=== PATIENT | male | born 2000 | race Caucasian/White ===

== ENCOUNTER 2023-03-19 23:40 | Emergency (ER) | payer MEDICAID, SELFPAY ==
[2023-03-19 23:41] VITALS: BP 137/76; PULSE 60; RESP 18; TEMP 36.4; O2SAT 96; BMI 23.7
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
[2023-03-20 01:51] VITALS: BP 128/80; PULSE 78; RESP 16; TEMP 36.7
== END 2023-03-20 01:52 | disposition home or self-care (01) ==
PROVIDERS: Emergency Provider Emergency Medicine; Visit Provider Emergency Medicine
DX: S60.222A Contusion of left hand, initial encounter (principal); V43.52XA Car driver injured in collision with other type car in traffic accident, initial encounter; Y92.410 Unspecified street and highway as the place of occurrence of the external cause
CPT/HCPCS: 73130; 99282